=== PATIENT | female | born 1965 | race Caucasian/White ===

== ENCOUNTER 2016-11-13 17:59 | Inpatient (IN) | payer BC ==
--- NOTE | ~2016-11-13 | CN ---
Consultation Report [facility] [address] [place]. [address] NAME: MARYBEL MCKAY : 67 STATUS : ADM Xavier PAT#: [id number] AGE: 51 ADM/REG DATE : 11/13/16 MR#: [id number] REPORT SERV DATE: 11/17/16 DICTATED BY: CYRIL MCDONALD DATE: 11/16/16 REPORT STATUS : Draft TRANSCRIBED BY: MODL DATE: 11/16/16 CARDIOLOGY CONSULTATION NOTE DATE OF CONSULTATION: 11/16/2016 REASON FOR CONSULTATION: Cryptogenic stroke. HISTORY OF PRESENT ILLNESS: Ms. 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 The patient was in her usual state of health until 11/13/2016. The patient was apparently driving in a car when she began noticing clumsiness of her right hand. The patient also had some expressive aphasia associated with her clumsiness. Apparently, her speech difficulty was not noticed by any of her friends or relatives, however. The patient eventually presented to [facility] Emergency Room. Due to a relatively low stroke score, the decision was made not to administer tPA. However, the patient later underwent magnetic resonance imaging of the brain, which did show an infarction in the left MCA distribution. According to the consulting neurologist, the MRI findings are strongly suspicious of an embolic source. The patient has essentially no cardiovascular risk factors. She has no previous history of hypertension, though her blood pressure was found to be elevated at the time of her hospital admission at 207/91. She denies any history of dyslipidemia, tobacco abuse, or family history of early coronary heart disease. She has never had any previous neurologic events. She has no history of cardiac dysrhythmias, though she does report occasional mild palpitations. These are fleeting in nature and have not been associated with any unusual dizziness or syncope. PAST MEDICAL HISTORY: Essentially negative. Again, the patient has no history of hypertension, diabetes, dyslipidemia, or vascular disease. SURGICAL HISTORY: Noncontributory. FAMILY HISTORY: Strongly positive for stroke in the patient's second-degree relatives, though neither of the patient's first-degree relatives suffered early stroke. SOCIAL HISTORY: Negative for tobacco use. The patient will have occasional glasses of wine about three times a week. She has no history of recreational drug use. REVIEW OF SYSTEMS: This is significant for a distant history of migraine headaches, but the 12-system review is otherwise noncontributory except for the pertinent positives and negatives noted in the history of present illness above. PHYSICAL EXAMINATION: VITAL SIGNS: The patient is afebrile with a temperature of 97.6 degrees Fahrenheit, blood Consultation Report [facility] [id number] [place]. [address] NAME: MARYBEL MCKAY : 67 STATUS : ADM Xavier PAT#: [id number] AGE: 51 ADM/REG DATE : 11/13/16 MR#: [id number] REPORT SERV DATE: 11/17/16 DICTATED BY: CYRIL MCDONALD DATE: 11/16/16 REPORT STATUS : Draft TRANSCRIBED BY: FOSTER DATE: 11/16/16 pressure is 107/52 mmHg, heart rate is 66 beats per minute and regular, respirations 12, and oxygen saturation is 97% on room air. GENERAL: The patient is a mildly overweight white woman, who is in no acute distress. EYES: PERRL, EOMI, clear conjunctiva. HEAD/MNT: NCAT with moist mucous membranes and grossly normal hard and soft palate. NECK: Supple with no obvious thyromegaly or lymphadenopathy CARDIOVASCULAR: There is a faint grade 1/6 early peaking systolic murmur noted at the right upper sternal border. This is suggestive of a benign flow murmur. The cardiovascular exam is otherwise normal with no rubs or gallops. PULMONARY: Clear to auscultation bilaterally, no wheezing, rales or rhonchi noted. No dullness to percussion. Non-labored. ABDOMINAL: Soft, non-tender, non-distended with no hepatosplenomegaly noted. EXTREMITIES: There are no Osler's nodes, Janeway lesions, flame hemorrhages, or other indications of cardioembolic phenomenon. No clubbing, cyanosis, or edema. MUSCULOSKELETAL: Grossly normal strength and range of motion in all extremities INTEGUMENTARY: Skin appears intact with no bruises, wounds or active lesions noted NEURO/PSYC: Alert and oriented x3, with no dysarthria, facial droop or lateralizing weakness noted. LABORATORY DATA: The patient's thyroid function studies are grossly normal. The patient is noted to have a positive LYRIC titer. Homocysteine level is mildly elevated at 11.3. CBC shows a white blood cell count of 3.9, hemoglobin 13.6, hematocrit 42, and platelets 216. Electrolytes show a sodium of 141, potassium 4.1, chloride is 109, CO2 is 26, BUN 14, creatinine is 0.71, and glucose is 114. ESR is normal at 8. Troponin I is less than 0.02. LABORATORY AND DIAGNOSTIC STUDIES: 12-lead EKG: The 12-lead EKG shows normal sinus rhythm with a somewhat shortened UT interval, but no other significant abnormality. Cardiac telemetry: Cardiac telemetry reveals no significant cardiac dysrhythmia. Transthoracic echocardiogram: I have personally reviewed the patient's transthoracic echocardiogram. This is an acceptable quality study showing no significant valvular heart disease. There was an agitated saline contrast study performed, which shows no indication of intracardiac shunting. The study is otherwise unremarkable. ASSESSMENT AND PLAN: 1. Cryptogenic stroke with features suggestive of embolic source: I feel the patient would be a good candidate for an implantable loop recorder. These have been shown to increase the diagnostics sensitivity for significant cardiac dysrhythmias. As for the question of whether the patient should have a transesophageal echocardiogram performed, this is somewhat less clear. There is some nonrandomized evidence to suggest that routine performance of transesophageal echocardiography in cases of cryptogenic stroke may slightly increase diagnostic sensitivity for ASD, PFO, or intracardiac thrombus. However, there was no formal indication for this. For now, I will keep the patient n.p.o. past midnight. I will discuss the case with the imaging physician tomorrow. Consultation Report [address] [address] NAME: MARYBEL MCKAY : 67 STATUS : ADM Xavier PAT#: [id number] AGE: 51 ADM/REG DATE : 11/13/16 MR#: [id number] REPORT SERV DATE: 11/17/16 DICTATED BY: CYRIL MCDONALD DATE: 11/16/16 REPORT STATUS : Draft TRANSCRIBED BY: MODL DATE: 11/16/16 The patient is at low risk for infectious endocarditis given her normal ESR, lack of fever, or leukocytosis. 2. The patient will continue aspirin, which has been started. Of note, the patient was not taking aspirin at the time of her stroke. Thank you for allowing me to participate in the care Ms. Mckay. The Cardiology Service will continue to follow the patient closely during this admission. YOSEF/FOSTER Cyril Mcdonald MD / [id number] CC: Martha Johnson M.D.
--- NOTE | ~2016-11-13 | HP ---
History And Physical [facility] [id number] [place]. [address] NAME: MARYBEL MCKAY : 67 STATUS : ADM Xavier PAT#: [id number] AGE: 51 ADM/REG DATE : 11/13/16 MR#: [id number] REPORT SERV DATE: 11/13/16 DICTATED BY: AVERY POWELL DATE: 11/13/16 REPORT STATUS : Draft TRANSCRIBED BY: MODL DATE: 11/13/16 DATE OF ADMISSION: 11/13/2016 CHIEF COMPLAINT: Fine motor deficits. 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 I actually saw the patient yesterday at work during a code and the patient did an excellent job putting in an IV emergently into the patient who had coded. The patient first noticed something was not normal when she picked up a cup while she was driving and she dropped it. The patient then noticed that she was feeling somewhat numb in the right hand and then she also felt the numbness on her left hand. The patient also had more fine motor difficulties, such as trouble texting on her phone as well as not being able to take off her earrings or tying a bow behind her neck. The patient also had a short period of aphasia where she was missing words when she was putting sentences together. The patient decided to come to the ER for further evaluation and care. In the ER, the patient was found to be extremely hypertensive with blood pressure of 207/91, whereas she does not have a history of hypertension. The patient was otherwise hemodynamically stable. Initial lab evaluation was actually all very benign. Initial neurologic exam was also all very benign with intact cranial nerves II through XII and intact motor exam upper and lower extremities along with intact deep tendon reflexes. CT of the head was performed, which was unremarkable. Internal Medicine consultation was requested for admission of the patient for further evaluation and care. REVIEW OF SYSTEMS: The patient denies any fevers or chills. Also, 14-point review of systems reviewed and negative other than mentioned above. MEDICATIONS: None. ALLERGIES: NKDA. PAST MEDICAL HISTORY: 1. The patient used to have anxiety and depression in the past and required to be on medications, but she is not on any medications anymore. 2. The patient also used to have GERD and esophageal strictures, but the patient has been off medications for a while now. 3. Otherwise, the patient denies hypertension, heart disease, diabetes. The patient is not on any medications other than eyedrops. PAST SURGICAL HISTORY: Tonsillectomy. FAMILY HISTORY: Hypertension, CVAs, and heart diseases, including premature coronary artery disease. History And Physical [address] [address] NAME: MARYBEL MCKAY : 67 STATUS : ADM Xavier PAT#: [id number] AGE: 51 ADM/REG DATE : 11/13/16 MR#: [id number] REPORT SERV DATE: 11/13/16 DICTATED BY: AVERY POWELL DATE: 11/13/16 REPORT STATUS : Draft TRANSCRIBED BY: FOSTER DATE: 11/13/16 SOCIAL HISTORY: The patient does not smoke. The patient consumes a glass of wine about three times weekly. The patient does not use any illicit drugs. The patient lives at home by herself. 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 PHYSICAL EXAMINATION: VITAL SIGNS: Temperature 98.6, blood pressure 207/91, which improved to 161/81 by the time of my encounter with the patient, pulse 63, respiratory rate is 16, and saturating 100% on room air. NEUROLOGIC: The patient is alert and oriented x3. The patient has good mentation and good speech. The patient also has no focal neurologic deficits. Cranial nerves II through XII intact. The patient has equal strengths in bilateral upper and lower extremities. The patient has no ataxia and the patient has no pronator drift, but the patient reports that during the exam, the patient really has to focus to pass these neurologic exams. GENERAL: The patient is awake, does not appear to be in acute distress, and she is cooperative. NECK: No JVD. No lymphadenopathy. Normal thyroid. CHEST: No midline sternotomy wound and nontenderness to palpation. LUNGS: Clear to auscultation bilaterally with normal respiratory effort on room air. CARDIOVASCULAR: Regular rate and rhythm with no murmurs, rubs, or gallops, and PMI is nondisplaced. ABDOMEN: Soft, nontender, with active bowel sounds and no organomegaly. EXTREMITIES: No edema. Normal distal pulses. No calf tenderness. SKIN: Clean, dry, warm, and intact. LABORATORY DATA: Sodium is 143, potassium 4.3, chloride 107, BUN 12, creatinine 0.65, glucose 107, calcium 9.0. White blood cell count is 3.8, hemoglobin 14.0, platelets 206. CT of the head was unremarkable and her EKG was within normal limits. 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 1. Fine motor deficits, bilateral upper extremities as well as an episode of expressive aphasia concerning for possible cerebrovascular accident, although very atypical in presentation. 2. The patient is very hypertensive here in the ER, although she does not have any history of hypertension. PLAN: My plan is to admit the patient under telemetry monitoring. The patient will be treated with aspirin as well as statin and NAOMIE inhibitor empirically. The patient will be closely monitored under neurologic monitoring per protocol, and I will also check hemoglobin A1c, lipid panel, serial troponins, TSH, B12, and folate to complete metabolic workup. I will also check MRI of the head and neck, and I will also request neurology consultation. The patient will be seen by Occupational Therapy and at presently, I do not feel that the patient needs physical therapy or speech therapy as the patient's physical exam is very benign. For the hypertension, the patient will be given p.r.n. antihypertensives with allowance for permissive hypertension. Otherwise, standard DVT prophylaxis. The patient is full code at this time. History And Physical [address] [address] NAME: MARYBEL MCKAY : 67 STATUS : ADM Xavier PAT#: [id number] AGE: 51 ADM/REG DATE : 11/13/16 MR#: [id number] REPORT SERV DATE: 11/13/16 DICTATED BY: AVERY POWELL DATE: 11/13/16 REPORT STATUS : Draft TRANSCRIBED BY: MODLeticia DATE: 11/13/16 [facility] Avery Powell MD / [id number] CC: Martha Johnson M.D.
--- NOTE | ~2016-11-13 | CN ---
Consultation Report [facility] [address] [place]. [address] NAME: MARYBEL MCKAY : 67 STATUS : ADM Xavier PAT#: [id number] AGE: 51 ADM/REG DATE : 11/13/16 MR#: [id number] REPORT SERV DATE: 11/14/16 DICTATED BY: KATIANA SCHMITT DATE: 11/14/16 REPORT STATUS : Draft TRANSCRIBED BY: FOSTER DATE: 11/14/16 NEUROLOGICAL EVALUATION-CONSULTATION. DATE OF CONSULTATION: 11/14/2016 HISTORY OF PRESENT ILLNESS: This is a 51-year-old female, with no prior history of TIA or CVA, previously healthy who presented with symptoms of clumsiness involving her hands and some difficulty with her speech which started at 2 p.m. yesterday. The patient first noted her difficulty when she was trying to place boxes in her car yesterday afternoon after driving home to her house in [place], she noted that she was not feeling well. She notified her friend who eventually brought her to the emergency room three hours after the onset of symptoms. The patient's complaints at that time included numbness in the right hand. The patient noted that she had some difficulty finding words at times. However, her speech problems were not noted by her friends or relatives. The patient was seen by an emergency room physician who chose not to administer tPA for the patient since her symptoms were extremely mild and difficult to detect. The patient's CT scan of the head done in the emergency room was negative for any changes and was normal. The patient blood pressure on admission to the emergency room was 207/91. PAST MEDICAL HISTORY: The patient does not have any significant medical problems. She stated that she has gained 20 pounds in the last year or so, has been under great deal of stress from her personal life and work. The patient works as an IV team nurse. ALLERGIES: NO KNOWN ALLERGY. SOCIAL HISTORY: The patient denied smoking, use of alcohol except for glass of wine 3 times a week. FAMILY HISTORY: Strongly positive for history of stroke in both grandparents, maternal and paternal side. The patient's uncle in his 20s had an WI and another one on the patient's father's side at age 38 and required open heart surgery. The patient's mother had rheumatoid arthritis. She of lung cancer, was a smoker. REVIEW OF SYSTEMS: The patient stated that she has had migraines in the past which subsided approximately five years ago. She has been menopausal in the past four years. The patient's migraines were associated with aura which she described as water waves that she was looking through. The aura was bilateral, at times not associated with her headache. Review of systems which was essentially negative except for what is in history of present illness. The rest of 14 points of review of system was negative. PHYSICAL EXAMINATION: Consultation Report [address] [place]. [address] NAME: MARYBEL MCKAY : 67 STATUS : ADM Xavier PAT#: [id number] AGE: 51 ADM/REG DATE : 11/13/16 MR#: [id number] REPORT SERV DATE: 11/14/16 DICTATED BY: KATIANA SCHMITT DATE: 11/14/16 REPORT STATUS : Draft TRANSCRIBED BY: FOSTER DATE: 11/14/16 VITAL SIGNS: Blood pressure 125/58, pulse was 69, respirations 18, and temperature is 98.6. HEAD AND NECK: Examination showed head to be normocephalic. There was no evidence of trauma. Auscultation of the neck showed no evidence of bruits. EYE: Sclerae are not icteric. Conjunctivae were pink. ENT: Exam was unremarkable. The patient's airway was slightly small, Mallampati class 3. NECK: Neck was supple. There was no Kernig or Brudzinski. Cervical range of motion was not impaired. CHEST: Symmetrical. LUNGS: Clear to auscultation. HEART: Regular S1, S2. No S3, S4, or gallops were noted. ABDOMEN: Soft, nontender. There was no organomegaly. EXTREMITIES: Showed no clubbing or cyanosis. There is no peripheral edema. Peripheral pulses were normal. NEUROLOGICAL EXAMINATION: The patient was alert, oriented to self, time, and place. Her speech was fluent. There was no evidence of aphasia or dysarthria. The patient's repetition was normal. Writing and reading were normal. The patient did not have acalculia calculations. There was no finger agnosia. No other significant deficits. Visual lawler on confrontation were intact. Funduscopic exam showed no evidence of papilledema, hemorrhages, or exudates. Extraocular movements were full. There was no nystagmus. No limitation of upward or downward gaze was noted. The rest of cranial nerve examination show no evidence of asymmetry or weakness. Motor Exam: Muscle bulk and tone were normal. However, the patient had very severely minimal left pronator drift, slight clumsiness involving the left hand, very minimal weakness involving the left hand. Otherwise, strength was 5/5 throughout. Deep tendon reflexes were symmetrical. Sensory exam showed no evidence of significant deficits. Cerebellar exam with [id number], cvyr-hb-goyk was within normal range, and gait; the patient had no difficulty with her gait. LABORATORY STUDIES: Sodium 143, potassium 4.3, chloride 107, BUN 12, creatinine 0.65, GFR 120, glucose 107, calcium 9, WBC count 3.8, hemoglobin 14.0, hematocrit 43.2, platelet count 206,000, differential not obtained. IMPRESSION AND RECOMMENDATIONS: Acute probable embolic in origin cerebrovascular accident involving the right parietal region. The patient was hypertensive on admission, blood pressure of 207/91 with no prior history of hypertension. No prior history of cardiac or vascular problems. There is, however, strong family history of coronary artery disease, cardiac problems on both sides of the patient's family. The patient's workup should be approached as stroke workup in a young patient that should include evaluating possible cardiac sources of abnormalities and/or emboli, cardiac arrhythmias, atrial fibrillation, or other arrhythmias which the patient should be monitored for. Consultation Report [address] [place]. [address] NAME: MARYBEL MCKAY : 67 STATUS : ADM Xavier PAT#: [id number] AGE: 51 ADM/REG DATE : 11/13/16 MR#: [id number] REPORT SERV DATE: 11/14/16 DICTATED BY: KATIANA SCHMITT DATE: 11/14/16 REPORT STATUS : Draft TRANSCRIBED BY: MODL DATE: 11/14/16 Rule out presence of coagulopathies. In addition to routine collagen vascular screen, I would recommend to obtain a homocystine level, antithrombin III level, protein C, protein S, factor V Leiden, anti-cardiolipin antibodies, lupus anticoagulant. Follow stroke protocol, PT, OT, Speech Therapy. Start aspirin 325 mg per day. Stroke education. Echocardiogram, bubble study, or transesophageal echo. Cardiology consultation if needed. Thank you for allowing us to participate in this patient's care. AMANDA/FOSTER Katiana Schmitt MD / [id number] CC: Martha Johnson M.D.
--- NOTE | ~2016-11-13 | DS ---
Discharge Summary [facility] [address] [place]. [address] NAME: MARYBEL MCKAY : 67 STATUS : DIS IN PAT#: [id number] AGE: 51 ADM/REG DATE : 11/13/16 MR#: [id number] REPORT SERV DATE: 11/18/16 DICTATED BY: KIERAN ALEXANDRA DATE: 11/17/16 REPORT STATUS : Draft TRANSCRIBED BY: MODL DATE: 11/17/16 ADMISSION DATE: 11/13/2016 DISCHARGE DATE: 11/17/2016 CONSULTANTS: Dr. Katiana Schmitt, Dr. Kathryn Duran, Neurology, and Dr. Douglas Mcdonald, Cardiology. DISCHARGE DIAGNOSES: 1. Acute right parietal ischemic stroke, presumed embolic. 2. Transient elevation of blood pressure. 3. Gastroesophageal reflux disease. 4. Low normal B12 level. 5. Mildly low white blood count. 6. Positive LYRIC. 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 She also had reported short period of difficulty with speech. She came to the emergency room. Her blood pressure was 207/91. She was evaluated by the ER and not felt to be a candidate for tPA because her symptoms were reportedly mild and difficult to detect. The patient was referred to our team for inpatient care. Imaging included CT scan of the brain without contrast, which revealed no acute abnormal findings. Chest x-ray was normal. MRI of the brain on 11/14/2016 showed acute right parietal cortical ischemic infarct, 2 x 3 cm, within the right middle cerebral artery distribution. No hemorrhagic conversion. Very minor deep white matter microvascular changes. MRI of the cervical spine revealed mild cervical spondylosis at C3-4, C4-5 without canal stenosis. Severe left-sided neuroforaminal narrowing at C4-5 which could affect the left C5 nerve root. MRA of the brain, unremarkable. MRA of the neck, unremarkable. Echocardiogram on 11/16/2016 showed left atrium 3.1 cm, left ventricular ejection fraction 60%, negative bubble study. The patient was on aspirin, high-dose Lipitor, and given lisinopril. Neurology saw her and agreed with the plan. Cardiology saw her, Dr. Mcdonald. They agreed with a loop recorder which was implanted on 11/17/2016. They are not recommending an urgent transesophageal echo, they are recommending it within the next week, and their office is going to contact her for transesophageal echo next week. Then, she will see Dr. Douglas Mcdonald, Cardiology, on 12/07/2016 at 3:30 p.m. and [facility] on 12/08/2016 at 11:30. Other testing, while she was here revealed that she had a positive LYRIC titer at 1-160, was run twice, one time it was speckled, one time homogeneous. Her homocystine level was elevated at 11.3. Total cholesterol 177, HDL 68, LDL 96, triglycerides 68. Her B12 level was at the low end of normal at 251. The patient is advised to have a followup appointment with a new PCP. She was given options for this. DISCHARGE MEDICATIONS: Include aspirin 325 mg daily, Lipitor 80 mg daily, vitamin B12 of 2000 mcg daily, vitamin D of 5000 units daily, lisinopril 10 mg daily, Tylenol 650 q.6 hours Discharge Summary [address] [address] NAME: MARYBEL MCKAY : 67 STATUS : DIS IN PAT#: [id number] AGE: 51 ADM/REG DATE : 11/13/16 MR#: [id number] REPORT SERV DATE: 11/18/16 DICTATED BY: KIERAN ALEXANDRA DATE: 11/17/16 REPORT STATUS : Draft TRANSCRIBED BY: FOSTER DATE: 11/17/16 p.r.n. pain, Plavix 75 mg daily, tramadol 50 mg one or two every four hours p.r.n. pain after loop recorder implantation. She takes Xiidra 5% one drop both eyes q.12 hours, flaxseed 1000 mg daily, calcium gluconate 1000 mg daily. I spent 39 minutes today with the patient and with case management and with discharge planning. NICCI/FOSTER Kieran Alexandra M.D. / [id number] CC: Rosemary Salgado MD
[2016-11-13 18:35] LABS: BASOPHILS 0.5 %; BASOPHILS ABSOLUTE 0.02 10/3/uL (0.0-0.16); EOSINOPHILS 2.4 %; EOSINOPHILS ABSOLUTE 0.09 10/3/uL (0.0-0.53); ER CBC TAT 0 Hrs 09 Mins; HEMATOCRIT 43.2 % (36.0-48.0); LYMPHOCYTES 45.1 %; LYMPHOCYTES ABSOLUTE 1.69 10/3/uL (0.67-4.30); MEAN CORPUS HGB CONC 32.4 g/dL (32.0-36.0); MEAN CORPUSCULAR HEMOGLOB 30.7 pg (26.0-34.0); MEAN CORPUSCULAR VOLUME 94.7 fL (80-100); MEAN PLATELET VOLUME 10.2 fL (9.2-13.0); MONOCYTES 7.5 %; MONOCYTES ABSOLUTE 0.28 10/3/uL (0.21-1.20); NEUTROPHILS 44.5 %; NEUTROPHILS ABSOLUTE 1.67 10/3/uL (2.02-8.40); PLATELET COUNT 206 10/3/uL (150-400); RBC DISTRIBUTION WIDTH 13.8 % (12.0-16.0); RED CELL COUNT 4.56 10/6/uL (4.0-5.6); WHITE BLOOD CELLS 3.8 10/3/uL (4.5-10.5)
[2016-11-13 18:36] LABS: MANUAL DIFF NO %
[2016-11-13 18:45] LABS: BUN (BLOOD UREA NITROGEN) 12 MG/DL (6-23); CHLORIDE, SERUM 107 MMOL/L (96-112); CO2 (CARBON DIOXIDE) 29 MMOL/L (24-34); CREATININE 0.65 MG/DL (0.55-1.02); GFR AFRICAN AMERICAN 120 ML/MIN (>=60); GFR NON AFRICAN AMERICAN 104 ML/MIN (>=60); GLUCOSE, SERUM 107 MG/DL (60-99); POTASSIUM, SERUM 4.3 MMOL/L (3.5-5.3); SODIUM, SERUM 143 MMOL/L (135-148)
[2016-11-13 19:09] LABS: PLATELET ESTIMATE ADQ (ADEQUATE)
[2016-11-13] MEDS ORDERED: XIIDRA1 EACH OPH (20:54)
[2016-11-13] MEDS ORDERED: BL FLAX SEED1000 MG PO (20:55)
[2016-11-13] MEDS ORDERED: CALGLUCTAB PO (20:58)
[2016-11-13] MEDS ORDERED: D 5000 PO (20:59)
[2016-11-13] MEDS ORDERED: ADVIL PO (21:00)
[2016-11-13] MEDS ORDERED: VITE PO (21:01)
[2016-11-13 23:05] LABS: PROTIME (NOT ORD) 12.9 SEC (12.0-14.5)
[2016-11-13 23:06] LABS: PARTIAL THROMBO TIME 29.2 SEC (22.5-37.2)
[2016-11-13 23:24] LABS: A/G RATIO 1.1 (0.7-1.9); ALBUMIN 3.8 G/DL (3.5-5.0); ALKALINE PHOSPHATASE 105 U/L (45-117); CHOL/HDL RATIO(NOT ORDER) 2.6 (0-5); CHOLESTEROL 177 MG/DL (< 200); CPK 62 U/L (0-200); GLOBULIN 3.4 G/DL (2.5-4.1); HDL CHOLESTEROL 68 MG/DL (> 49); LDL CHOLESTEROL 96 MG/DL (< 130); NON-HDL CHOLESTEROL 109 MG/DL (< 160); SGOT(AST) 19 U/L (5-40); SGPT(ALT) 26 U/L (5-65); TOTAL BILIRUBIN 0.4 MG/DL (0-1.2); TOTAL PROTEIN 7.2 G/DL (6.0-8.5); TRIGLYCERIDE 68 MG/DL (< 150); TROPONIN I <0.02 NG/ML (<0.05)
[2016-11-13 23:25] LABS: CK-MB 0.8 NG/ML; FOLATE 12.3 NG/ML (>5.2)
[2016-11-14 08:03] LABS: ASCORBIC ACID (UR NOT ORDER) 20 (NEG); BILIRUBIN, URINE NEGATIVE (NEG); KETONE, URINE NEGATIVE (NEG); LEUKOCYTE ESTERASE(NOT OR TRACE (NEG); WBC (NOT ORDERED) (RFLEX) 2 (0-5)
[2016-11-14 08:37] LABS: TROPONIN I <0.02 NG/ML (<0.05)
[2016-11-14 08:42] LABS: CK-MB 0.6 NG/ML; CPK 40 U/L (0-200)
[2016-11-14 15:51] LABS: CPK 47 U/L (0-200); TROPONIN I <0.02 NG/ML (<0.05)
[2016-11-14 15:52] LABS: CK-MB 0.5 NG/ML
[2016-11-14 19:55] LABS: FOLATE 14.9 NG/ML (>5.2)
[2016-11-15 08:18] LABS: BASOPHILS 0.3 %; BASOPHILS ABSOLUTE 0.01 10/3/uL (0.0-0.16); EOSINOPHILS 3.8 %; EOSINOPHILS ABSOLUTE 0.15 10/3/uL (0.0-0.53); HEMATOCRIT 42.3 % (36.0-48.0); HEMOGLOBIN 13.6 g/dL (12.0-16.0); LYMPHOCYTES 47.9 %; LYMPHOCYTES ABSOLUTE 1.87 10/3/uL (0.67-4.30); MEAN CORPUS HGB CONC 32.2 g/dL (32.0-36.0); MEAN CORPUSCULAR HEMOGLOB 30.1 pg (26.0-34.0); MEAN CORPUSCULAR VOLUME 93.6 fL (80-100); MEAN PLATELET VOLUME 10.4 fL (9.2-13.0); MONOCYTES 5.4 %; MONOCYTES ABSOLUTE 0.21 10/3/uL (0.21-1.20); NEUTROPHILS 42.6 %; NEUTROPHILS ABSOLUTE 1.66 10/3/uL (2.02-8.40); PLATELET COUNT 216 10/3/uL (150-400); RBC DISTRIBUTION WIDTH 13.9 % (12.0-16.0); RED CELL COUNT 4.52 10/6/uL (4.0-5.6); WHITE BLOOD CELLS 3.9 10/3/uL (4.5-10.5)
[2016-11-15 08:19] LABS: MANUAL DIFF NO %
[2016-11-15 08:50] LABS: BUN (BLOOD UREA NITROGEN) 14 MG/DL (6-23); CALCIUM, SERUM 8.9 MG/DL (8.5-10.4); CHLORIDE, SERUM 109 MMOL/L (96-112); CO2 (CARBON DIOXIDE) 26 MMOL/L (24-34); CREATININE 0.71 MG/DL (0.55-1.02); GFR AFRICAN AMERICAN 115 ML/MIN (>=60); GFR NON AFRICAN AMERICAN 99 ML/MIN (>=60); GLUCOSE, SERUM 114 MG/DL (60-99); HOMOCYSTEINE 11.3 UMOL/L (3.3-10.2); POTASSIUM, SERUM 4.1 MMOL/L (3.5-5.3); SODIUM, SERUM 141 MMOL/L (135-148)
[2016-11-15 09:50] LABS: ANTITHROMBIN 3 ACTIVITY 100 % (80-121)
[2016-11-15 13:54] LABS: FREE T4 0.84 NG/DL (0.76-1.46)
[2016-11-15 13:56] LABS: ULTRASENSITIVE TSH 1.38 MCIU/ML (0.358-3.740)
[2016-11-16 12:37] LABS: 2ND TITER PATTERN HOMOGENEOUS; ANA PATTERN SPECKLED
[2016-11-17 10:30] LABS: BASOPHILS 0.2 %; BASOPHILS ABSOLUTE 0.01 10/3/uL (0.0-0.16); EOSINOPHILS ABSOLUTE 0.15 10/3/uL (0.0-0.53); HEMATOCRIT 44.9 % (36.0-48.0); HEMOGLOBIN 14.7 g/dL (12.0-16.0); IMMATURE GRANULOCYTES 0.2 %; IMMATURE GRANULOCYTES ABSOLUTE 0.01 10/3/uL (0.0-0.11); LYMPHOCYTES 32.8 %; LYMPHOCYTES ABSOLUTE 1.62 10/3/uL (0.67-4.30); MEAN CORPUS HGB CONC 32.7 g/dL (32.0-36.0); MEAN CORPUSCULAR VOLUME 91.6 fL (80-100); MEAN PLATELET VOLUME 10.7 fL (9.2-13.0); MONOCYTES 7.5 %; MONOCYTES ABSOLUTE 0.37 10/3/uL (0.21-1.20); NEUTROPHILS 56.3 %; NEUTROPHILS ABSOLUTE 2.78 10/3/uL (2.02-8.40); PLATELET COUNT 228 10/3/uL (150-400); RBC DISTRIBUTION WIDTH 13.8 % (12.0-16.0); WHITE BLOOD CELLS 4.9 10/3/uL (4.5-10.5)
[2016-11-17 10:31] LABS: MANUAL DIFF NO %
[2016-11-17 10:37] LABS: PROTIME (NOT ORD) 13.2 SEC (12.0-14.5)
[2016-11-17 10:44] LABS: BUN (BLOOD UREA NITROGEN) 19 MG/DL (6-23); CALCIUM, SERUM 9.1 MG/DL (8.5-10.4); CHLORIDE, SERUM 105 MMOL/L (96-112); CO2 (CARBON DIOXIDE) 30 MMOL/L (24-34); CREATININE 0.73 MG/DL (0.55-1.02); GFR AFRICAN AMERICAN 111 ML/MIN (>=60); GFR NON AFRICAN AMERICAN 96 ML/MIN (>=60); GLUCOSE, SERUM 101 MG/DL (60-99); POTASSIUM, SERUM 4.4 MMOL/L (3.5-5.3); SODIUM, SERUM 141 MMOL/L (135-148)
[2016-11-17] MEDS ORDERED: ASAB PO (17:24)
[2016-11-17] MEDS ORDERED: LIPITOR40 PO (17:25)
[2016-11-17] MEDS ORDERED: ZESTRIL10 MG PO (17:25)
[2016-11-17] MEDS ORDERED: VITAMIN B-121000 MC1 SL (17:26)
[2016-11-17] MEDS ORDERED: PLAVIX PO (17:26)
[2016-11-17] MEDS ORDERED: ULTRAM50 PO (17:27)
[2016-11-17] MEDS ORDERED: T PO (18:19)
[2016-11-18 14:36] LABS: PROTEIN C ACTIVITY 148 % (70-145); PROTEIN S ACTIVITY 117 % (59-153)
[2016-11-18 14:51] LABS: DRVVT 38.5 sec (31.8-45.7); DRVVT CONFIRM RATIO CHG ND; DRVVT MIX RATIO CHG ND
[2016-11-24] MEDS ORDERED: CALCIUM (10:42)
== END 2016-11-17 18:25 | disposition home or self-care (01) | DRG 42 ==
LOC: ER 17:59 → 1SO 20:56
PROVIDERS: Hospitalist; Internal Medicine; Internal Medicine Clinical Cardiac Electrophysiology
PROC: 0JH632Z Insertion of Monitoring Device into Chest Subcutaneous Tissue and Fascia, Percutaneous Approach (ICD-10-PCS; principal; 2016-11-17)
DX: I63.441 Cerebral infarction due to embolism of right cerebellar artery (principal); R47.01 Aphasia; R03.0 Elevated blood-pressure reading, without diagnosis of hypertension; K21.9 Gastro-esophageal reflux disease without esophagitis; R22.1 Localized swelling, mass and lump, neck; M47.892 Other spondylosis, cervical region; Z82.49 Family history of ischemic heart disease and other diseases of the circulatory system; Z79.899 Other long term (current) drug therapy
CPT/HCPCS: 33282; 70450; 70544; 70548; 70551-52; 71020; 72141; 80048; 80053; 80061; 81001; 81241; 82550; 82553; 82607; 82652; 82746; 83036; 83090; 84439; 84443; 84481; 84484; 85025; 85300; 85303; 85306; 85610; 85613; 85652; 85670; 85730; 86039; 86431; 93005; 93306; 97165-GO; 99285; A9270-GY; A9577; C1764; J0690; J2250; J3010